=== PATIENT | female | born 1955 | race Two or more races ===

== ENCOUNTER 2020-05-10 11:41 | Outpatient (CLI) | payer OTHER ==
[~2020-05-10 11:41] MED LIST: NABUMETONE500 MG PO; PERCOCET 5/3251 TAB PO
== END 2020-05-10 11:44 | disposition home or self-care (01) ==
LOC: SONOGRAMA 11:41
PROVIDERS: ATTEND Pathology Anatomic Pathology & Clinical Pathology
DX: D37.030 Neoplasm of uncertain behavior of the parotid salivary glands (principal)